=== PATIENT | male | born 1995 | race Caucasian/White ===

== ENCOUNTER 2020-09-04 08:18 | Outpatient (CLI) | payer OTHER, SELFPAY ==
--- NOTE | 2020-09-04 08:28 | US_ITS ---
WS: [id number] Complete ABDOMINAL ULTRASOUND HISTORY: ABDOMINAL PAIN COMPARISON: None available. Liver: 14.4 cm in length. Liver is normal size and echogenicity with no mass or intrahepatic dilatati on. Gallbladder: Normally distended with no gallstones, wall thickening or pericholecystic fluid. Gallbladder wall thickness: 0.3 cm. Pancreas: Not visualized. CBD: 0.4 cm. Right kidney: 11.8 cm x 4.7 cm x 5.1 cm. No mass, cortical thickening or hydronephrosis. Left kidney: 11.8 cm x 4.1 cm x 5.2 cm. No mass, cortical thickening or hydronephrosis. Spleen: Normal size and echogenicity. Abdominal aorta and IVC are within normal limits. No ascites. US/US abdomen complete* [id number] IMPRESSION: 1. Normal gallbladder and liver. 2. Pancreas not identified. Completely obscured by bowel gas. 3. Negative kidneys.
== END 2020-09-04 08:19 | disposition home or self-care (01) ==
PROVIDERS: PCP Nurse Practitioner Family; Visit Provider Nurse Practitioner Family
DX: R10.9 Unspecified abdominal pain (principal)
CPT/HCPCS: 76700